=== PATIENT | male | born 1990 | race Caucasian/White ===

== ENCOUNTER 2021-10-11 19:01 | Emergency (ER) | payer OTHER ==
[2021-10-11 19:36] LABS: HEMOGLOBIN 14.5 gm/dl (14.0-17.5); RED BLOOD COUNT 5.16 M/UL (4.20-5.50); WHITE BLOOD COUNT 14.8 K/UL (4.5-11.0)
[2021-10-11 19:57] LABS: BUN/CREATININE RATIO 12 (0-10)
[2021-10-11] MEDS ORDERED: IBUPROFEN800 MG PO (21:10)
[2021-10-11 21:31] LABS: BORDETELLA PARAPERTUSSIS Not Detected (Not Detectd); BORDETELLA PERTUSSIS Not Detected (Not Detectd); CHLAMYDIA PNEUMONIAE Not Detected (Not Detectd); CORONAVIRUS HKU1 Not Detected (Not Detectd); CORONAVIRUS NL63 Not Detected (Not Detectd); CORONAVIRUS OC43 Not Detected (Not Detectd); CORONOAVIRUS 229E Not Detected (Not Detectd); HUMAN METAPNEUMOVIRUS Not Detected (Not Detectd); HUMAN RHINOVIRUS/ENTEROVIRUS Not Detected (Not Detectd); INFLUENZA A Not Detected (Not Detectd); INFLUENZA B Not Detected (Not Detectd); MYCOPLASMA PNEUMONIAE Not Detected (Not Detectd); PARAINFLUENZA VIRUS 1 Not Detected (Not Detectd); PARAINFLUENZA VIRUS 2 Not Detected (Not Detectd); PARAINFLUENZA VIRUS 3 Not Detected (Not Detectd); PARAINFLUENZA VIRUS 4 Not Detected (Not Detectd); RESPIRATORY SYNCYTIAL VIRUS Not Detected (Not Detectd)
[2021-10-11 22:39] LABS: SARS-CoV-2 NOT DETECTED (Not Detectd)
[2021-10-12] MEDS ORDERED: DECADRON6 MG PO (21:39)
[2021-10-12] MEDS ORDERED: OMNICEF 300 MG300 MG PO (21:39)
== END 2021-10-11 21:59 | disposition home or self-care (01) ==
LOC: ER1 19:01
PROVIDERS: Physician Assistant
DX: J03.90 Acute tonsillitis, unspecified (principal); Z20.822 Contact with and (suspected) exposure to COVID-19; Z88.2 Allergy status to sulfonamides
CPT/HCPCS: 80053; 85025; 86403; 87040; 87081; 87633; 87880; 99283

== ENCOUNTER 2021-10-12 19:57 | Emergency (ER) | payer OTHER ==
[~2021-10-12 19:57] MED LIST: IBUPROFEN800 MG PO
[2021-10-12 20:42] LABS: HEMOGLOBIN 14.6 gm/dl (14.0-17.5); RED BLOOD COUNT 5.14 M/UL (4.20-5.50); WHITE BLOOD COUNT 14.3 K/UL (4.5-11.0)
[2021-10-12 21:02] LABS: BUN/CREATININE RATIO 13 (0-10)
[2021-10-12] MEDS ORDERED: DECADRON6 MG PO (21:39)
[2021-10-12] MEDS ORDERED: OMNICEF 300 MG300 MG PO (21:39)
[2021-10-14 13:13] LABS: EBV AB VCA, IGG 54.1 U/mL (0.0-17.9); EBV AB VCA, IGM <36.0 U/mL (0.0-35.9); EBV NUCLEAR ANTIGEN AB, IGG <18.0 U/mL (0.0-17.9)
== END 2021-10-12 22:00 | disposition home or self-care (01) ==
LOC: ER1 19:57
PROVIDERS: Family Medicine
DX: J02.8 Acute pharyngitis due to other specified organisms (principal)
CPT/HCPCS: 70487; 80053; 85025; 86644; 96374; 96375; 99284; J0696; J1100; Q9967